=== PATIENT | female | born 1995 | race Caucasian/White ===

== ENCOUNTER → 2018-03-21 | Emergency (ER) | payer OTHER ==
[~2018-03-21] VITALS: Ht 167.6 cm; Wt 54.0 kg
[~2018-03-21] MED LIST: CELEXA10 MG; FOLIC ACID20 MG; TENORMIN50 M1
== END | disposition home or self-care (01) ==
LOC: ER 15:28
DX: R53.81 Other malaise (principal); D57.219 Sickle-cell/Hb-C disease with crisis, unspecified